=== PATIENT | male | born 1990 | race Caucasian/White ===

== ENCOUNTER 2018-08-22 13:00 | Emergency (ER) | payer MEDICARE, MEDICAID, SELFPAY ==
--- NOTE | 2018-08-22 13:09 | DI.CT_ITS ---
SYMPTOM/DIAGNOSIS: ALTERED MENAL STATUS, R/O ACUTE DISEASE CRANIAL CT (WITHOUT CONTRAST): Noncontrast. No priors. A noncontrast cranial CT was performed. The ventricular system is normal in appearance. There is no evidence of an intracranial mass lesion. There is no evidence of a subdural or epidural hematoma. No focal areas of decreased attenuation are seen. CONCLUSION: Normal noncontrast Cranial CT.
--- NOTE | 2018-08-22 13:17 | ERNE_ITS ---
Discharge Plan Disposition Patient Disposition: STILL A PATIENT Condition: Stable Discharge Details Chief Complaint: PsychEval Clinical Impression: Suicidal ideation Reason For Visit: KVNG Primary Care Provider: Tresa Tolliver ED Provider: Gordy Gan Home Meds and New Rx's Prescriptions: No Action naltrexone 50 MG tablet 50 mg PO DAILY RF: 0 lithium carbonate 450 MG tablet extended release 450 mg PO HS RF: 0 risperidone [Risperdal] 2 MG tablet 2 mg PO HS RF: 0 pantoprazole 40 MG tablet,delayed release (DR/EC) 40 mg PO DAILY RF: 0 benztropine 1 MG tablet 1 mg PO BID RF: 0 lorazepam [Ativan] 1 MG tablet 1 mg PO BID RF: 0 prednisone 20 MG tablet 40 mg PO DAILY Qty: 10 RF: 0 albuterol sulfate [ProAir HFA] 200 PUFF HFA aerosol inhaler 2 inh Inhalation DIRECTED Qty: 1 RF: 0 clindamycin HCl 300 MG capsule 300 mg PO QID Qty: 30 RF: 0 promethazine 25 MG tablet 25 mg PO QID PRN PRN (Reason: Nausea) Qty: 8 RF: 0 Medical Decision Making 28-year-old transgender male with an unknown psychiatric history who presented for EMS after found curled up in a ball unresponsive down near the gas station. Unable to obtain a blood pressure but remainder vitals stable per EMS. Patient was able to stand up off the stretcher and onto a chair in the emergency department. Per staff, patient was continually trying to lay on the floor of the ER. Per another staff member in the ED who is familiar with patient, he is transgender and is biologically female but identifies as male and has a previous psych history, has been at [facility] before, and has had a history of a Tylenol overdose. Patient does not provide any history. Upon frequent questioning, patient does not answer any questions. Patient appears rigid with flat affect and masklike facies. Dilated pupils bilaterally. Regular rate and rhythm. Lungs clear to auscultation. No evidence of trauma. Does not follow commands. Vitals normal in room. Will do an infectious, altered mental status, and toxicology workup including CT head, chest x-ray, labs, urinalysis, UDS, urine , EKG. 1345 --patient vomited in radiology and they were unable to obtain CT head. Patient now again in the position. Patient had refused to sit up and lay back for the cxr. Patient is now admitting to nurse that she did not take any medication in overdose. He is crying. He is refusing to move from position. I got Concrete Floor Installer and nurse to place patient in supine position and in restraints for his safety. Patient is now banging his head against the stretcher handle. Will give a dose of Ativan and Haldol. 1437: EKG notes a rate of 86, sinus, no acute ST elevation or depression. QTc 48. QRS 96. 1615 --patient is now calm and admitting that he is feeling suicidal. States he feels like taking a bottle of Tylenol PM. States he was discharged from a psych facility in [place] yesterday. Patient admits to history of previous suicide attempts with taking Tylenol overdose. Also admits to a history of cutting but denies any recent cutting. Denies homicidal ideation, hallucinations, alcohol or drug use states he is taking his medication regularly. Patient moved to room 5. 1530 --patient is medically cleared. [place] level low at less than 0.02. CT head and chest x-ray negative for acute findings. Mental health called. 1800 --mental health here to evaluate patient. Informed mental health that patient is admitting to feeling actively suicidal. 181 --patient denied feeling suicidal to mental health and requested to go home. Mental health has cleared patient for discharge to home. I went back and I discussed with patient and he stated he is feeling suicidal. Janice from [facility] states that she is well familiar with patient and that he says these things frequently. Janice from [facility] states that after discussing with her boss she cannot EE this patient and cannot voluntarily admit him due to his previous history of frequently saying he is going to swallow a bottle of Tylenol PM. States that as he actively did not act on this plan, he does not qualify for EE. I discussed that I do not feel comfortable sending patient home. [facility] health discussed with patient's mom who did feel comfortable picking up patient. Patient discussed with me that he wants to go home but that he cannot contract for safety and that he will swallow a bottle of Tylenol PM. I discussed this with mental health and do not feel comfortable patient going home and will complete EE paperwork. 2018 -- Case endorsed to Dr. Salamanca to f/u up with mental health regarding plan for placement. HPI General Mode of arrival: EMS . Date/Time Provider Initiated Documentation: 08/22/18 13:09 . Limitations to Documentation: altered mental status . Information obtained by: patient . HPI Narrative: Patient is a 28-year-old male with a unknown psychiatric history for altered mental status after found in position on ground near a gas station. EMS reports that patient was huddled in a position on the grass. They report that patient apparently had driven his car and got out of the car and onto the grass. No evidence of trauma or vomitus. Patient arrived to ED appearing in a catatonic-like state, looking down, and not answering questions. PMH: Anxiety, Depression, Borderline Personality Disorder, GERD, Gender identity disorder, Previous suicide attempts Surgical history: Appendectomy, Skin graft, Esophageal reconstruction Social history: Rare alcohol, Denies tobacco or drugs Meds: See list Allergies: See list Related Data Home Medications Medication Instructions Recorded Confirmed benztropine 1 mg PO BID 02/14/15 08/23/16 lithium carbonate 450 mg PO HS 02/14/15 08/23/16 lorazepam [Ativan] 1 mg PO BID 02/14/15 02/22/16 naltrexone 50 mg PO DAILY 02/14/15 08/23/16 pantoprazole 40 mg PO DAILY 02/14/15 08/23/16 risperidone [Risperdal] 2 mg PO HS 02/14/15 08/23/16 albuterol sulfate [ProAir HFA] 2 inh INHALATION DIRECTED #1 inh 02/23/16 prednisone 40 mg PO DAILY #10 tab 02/23/16 08/23/16 clindamycin HCl 300 mg PO QID #30 cap 07/18/16 08/23/16 promethazine 25 mg PO QID PRN PRN #8 tab 07/18/16 08/23/16 Previous Rx's Medication Instructions Recorded albuterol sulfate [ProAir HFA] 2 inh INHALATION DIRECTED #1 inh 02/23/16 prednisone 40 mg PO DAILY #10 tab 02/23/16 clindamycin HCl 300 mg PO QID #30 cap 07/18/16 promethazine 25 mg PO QID PRN PRN #8 tab 07/18/16 Allergies Allergy/AdvReac Type Severity Reaction Status Date / Time hydromorphone HCl Allergy Severe hallucinati Unverified 08/23/16 12:10 [From Dilaudid] ons aripiprazole [From Abilify] Allergy Intermediate skin Unverified 08/23/16 12:10 crawling-can't sit still fluoxetine Allergy Unknown Unverified 08/23/16 12:10 Penicillins Allergy Unknown Unverified 08/23/16 12:10 Review of Systems Review of Systems Unobtainable due to mental condition and Unobtainable due to mental status [facility] Social History Smoking/Tobacco Use Status: Never Exam Const General: well developed Orientation: alert, awake and confused HENMT Head: normal to inspection Ears: TM's normal bilaterally Face and sinus: normal facial exam Eyes General: appearance normal, both eyes and all related structures Eyelids: eyelids normal Pupils: PERRL and dilated bilaterally Neck Neck: normal visual inspection Lymphatic: no lymphadenopathy noted Chest Chest: normal inspection of the chest Resp Effort & Inspection: normal respiratory effort and able to speak in complete sentences Auscultation: clear to auscultation bilaterally Cardio Rate: regular rate Rhythm: regular rhythm GI Inspection: normal to inspection Palpation: soft, not firm, no guarding, no hepatosplenomegaly, no masses and nontender Auscultation: normal bowel sounds Skin General skin exam: no rashes or lesions noted Neuro General: alert Motor: muscle tone normal throughout Extrem General: normal to inspection, full ROM and normal capillary refill Psych Appearance: grossly normal Mental Status: mental status grossly normal Speech and Movement: speech and movement normal Affect: normal affect Thought Process: normal Dictated by: GORDY GAN DO Dictated: 08/22/18 Time: 1314 Date: Time: Transcribed Date: 08/22/18 Transcribed Time: 1314 By: KIM This is privileged, confidential information, intended only for the provider named. Any use or distribution by any person other than this provider is strictly prohibited. If you receive this report in error, please notify us immediately at [phone] and return the original report to us at the address above. Thank you.
[2018-08-22 13:30] VITALS: BP 106/61; PULSE 81; RESP 19; TEMP 37.2; O2SAT 98
[2018-08-22] MEDS: Normal Saline 1,000 ML 1000 ML IV (13:30)
--- NOTE | 2018-08-22 13:34 | NUR.NOTE ---
Nursing Note:Patient is choosing to be in the position, with the wires wrapped around him. This manual writer knows patient from previous interactions and it is concering to have all the wires
--- NOTE | 2018-08-22 13:45 | NUR.NOTE ---
Nursing Note:Patient accompanied to DI for head ct. Patient refuses to get out of the position with face buried into the bed and hands over face. Patient found vomiting self induced. Patient was not cooperative for the CT he continued to fight this health underwriter and the attendants in CT. he began to bash her head on the CT table and woudln't be redirected. Patient was brought back to the ER where he was reevaluated by the provider.
[2018-08-22 13:50] LABS: Abs Immature Grans 0.01 k/cumm (0.0-0.09); Absolute Basophil Count 0.03 k/cumm (0.0-0.2); Absolute Eosinophil Count 0.11 k/cumm (0.0-0.7); Absolute Lymphocyte Count 1.32 k/cumm (1.2-3.4); Absolute Monocyte Count 0.42 k/cumm (0.11-0.7); Absolute Neutrophil Count 3.88 k/cumm (1.2-6.7); Basophils % 0.5; Eosinophils % 1.9; HCT 42.1 % (40.0-50.0); Immature Grans % 0.2; Lymphocytes % 22.9; Mean Corp. HGB Concentration 33.3 g/dL (32.0-36.0); Mean Corpuscular Hemoglobin 31.2 pg (27.0-33.0); Mean Corpuscular Volume 93.8 fL (80-95); Mean Platelet Volume 10.5 fL (8.0-11.0); Monocytes % 7.3; Neutrophils % 67.2; Platelet Count 270 x1000/uL (130-400); RBC 4.49 m/cumm (4.50-6.00); RBC Distribution Width 13.7 % (11.8-14.1); White Blood Cell Count 5.77 k/cumm (4.4-10.8)
--- NOTE | 2018-08-22 13:50 | NUR.NOTE ---
Nursing Note: During the time between 1400 and 1300 patient boneptali Pawel was present in the room assisting this production underwriter along with the sheriff's detective. This production underwriter always made sure eyes were on the patient and that his needs were being met. Once patients restraints were removed just before 1300. Patient was much more cooperative and was able to go to CT and provide a urine. He was then moved to Room 5 the safety room.
[2018-08-22 13:52] LABS: Lactate-non-spesis 1.8 mmol/L (0.6-1.4)
--- NOTE | 2018-08-22 13:55 | NUR.NOTE ---
Nursing Note:Verbal order given for restraints at this time.Patient continues to try and harm self by hitting head off the side rails, biting ones self as well as not cooperating with staff. Patient did voice that He wanted to I want to kill my self so bad, i really wanted to hurt myself so bad.
[2018-08-22 14:04] LABS: Prothrombin Time 9.9 sec (9.3-10.8)
[2018-08-22 14:15] LABS: Salicylate < 2.8 mg/dL (2.8-20.0)
[2018-08-22 14:16] LABS: Lithium < 0.02 mmol/L (0.60-1.20)
[2018-08-22] MEDS: Haloperidol 5 MG/ML VIAL 4 MG IM/IV ×2 (14:16→14:32)
[2018-08-22] MEDS: LORazepam 2 MG/ML VIAL IVP ×2 (14:17→14:32)
[2018-08-22 14:19] LABS: Acetaminophen < 2 ug/mL (10-30)
[2018-08-22 14:21] LABS: ALT 27 U/L (12-78); AST 26 U/L (15-37); Albumin 3.9 g/dL (3.4-5.0); Alkaline Phosphatase 133 U/L (46-116); Anion Gap 8.8 mmol/L (3-11); BUN 9 mg/dL (7-18); Bilirubin, Total 0.2 mg/dL (0.2-1.0); CO2 28.2 mmol/L (21.0-32.0); CREATININE 0.67 mg/dL (0.70-1.30); Calcium 9.4 mg/dL (8.5-10.1); Chloride 103 mmol/L (98-107); Glucose 92 mg/dL (70-100); Lipase 105 U/L (73-393); Magnesium 2.2 mg/dL (1.8-2.4); Potassium 4.2 mmol/L (3.5-5.1); Sodium 140 mmol/L (136-145); Total Protein 8.3 g/dL (6.4-8.2)
[2018-08-22 14:28] LABS: Bilirubin, Direct < 0.05 mg/dL (0.00-0.20); ETHANOL BLOOD < 3.0 mg/dL (<3); Troponin I < 0.02 ng/mL (0.00-0.06)
--- NOTE | 2018-08-22 15:33 | NUR.NOTE ---
Pt. resting quietly. Nursing Note:
--- NOTE | 2018-08-22 16:02 | NUR.NOTE ---
at appoximately 14:00 i was asked to help in room number two, i entered the room and assisted the nurse and operational trainer putting the pt in restraints as the pt was trying to harm them self and resisting care. at 14;54 the nurse removed the leg and chest restraints as pt was much calmer. at 14:58 Nurse removed restaint off right hand . At 15:00 Nurse removed restraint off left hand. 15:15 pt was resting quietly, Nursing Note:
--- NOTE | 2018-08-22 16:07 | DI.RAD_ITS ---
SYMPTOM/DIAGNOSIS: ALTERED MENTAL STATUS, R/O ACUTE DISEASE CHEST X-RAY, PA AND LATERAL: Comparison 07/18/16. Heart size and pulmonary vasculature are within normal limits. There are stable areas of scarring in the right upper lobe. No infiltrates are seen in the right lung. There are air fluid levels seen in the inferior aspect of the left hemithorax. 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 These air fluid levels likely reflect air in bowel. Increased opacities are seen in the left lung with scarring in the left apex. These appear to be chronic. No definite acute infiltrates, effusions or pneumothoraces are identified. The bones appear intact. IMPRESSION: 1. Bilateral stable chronic appearing changes of the lungs. These may represent atelectasis or scarring. 2. Air fluid levels seen in the left hemithorax medially, most suggestive of a diaphragmatic hernia. CT scan of the chest and abdomen should be considered if further evaluation is warranted.
--- NOTE | 2018-08-22 16:23 | DI.VRAD_ITS ---
EXAM: CT Head Without Intravenous Contrast EXAM DATE/TIME: 08/22/2018 1:15 PM CLINICAL HISTORY: 28 years old, male; Signs and symptoms; Altered mental status/memory loss TECHNIQUE: Axial computed tomography images of the head/brain without intravenous contrast. Coronal and sagittal reformatted images were created and reviewed. COMPARISON: No relevant prior studies available. FINDINGS: Brain: Normal. No hemorrhage. No significant white matter disease. No edema. Ventricles: Normal. No ventriculomegaly. Bones/joints: Normal. No acute fracture. Sinuses: Normal as visualized. No acute sinusitis. Mastoid air cells: Normal as visualized. No mastoid effusion. Soft tissues: Normal. IMPRESSION: No acute intracranial abnormality. If symptoms persist short interval MRI can be obtained, if there are no contraindications for obtaining MRI. Dictated and Authenticated by: Kaveh Logan MD. Ordering:KIM KAMINSKI MD
--- NOTE | 2018-08-22 16:31 | DI.VRAD_ITS ---
EXAM: XR Chest, 2 Views EXAM DATE/TIME: 08/22/2018 4:09 PM CLINICAL HISTORY: 28 years old, male; Signs and symptoms; Other: Altered mental status, R/O acute disease TECHNIQUE: XR of the chest, 2 views. COMPARISON: CR PORTABLE CHEST ONE VIEW 07/18/2016 4:57 PM FINDINGS: Tubes, catheters and devices: There is air-filled loop of colon in the left apex which may represent a diaphragmatic hernia. Lungs: There is atelectasis at the left lung base and the right upper lobe. Pleural space: Unremarkable. No pleural effusion. No pneumothorax. Heart/Mediastinum: Unremarkable. No cardiomegaly. Bones/joints: Unremarkable for patient's age. IMPRESSION: Atelectasis at the left lung base and right upper lobe. Possible diaphragmatic hernia with loop of colon. Dictated and Authenticated by: Kaveh Logan MD. Ordering:KIM KAMINSKI MD
--- NOTE | 2018-08-22 17:05 | PDOC.ERCMPRO ---
- If Service Date Differs Date of service: 08/22/18 Time of Service: 17:05 Care Management Progress Note Wong presents to the ER via EMS after community members found him lying on the ground near the gas station by the hospital. Wong resides with his parents Elvira and Yamil in [place], and recently was in a psychiatric facility in [facility]. Per Wong's report he was discharged from the facility in [facility] yesterday 08/22/18, he states that he took a train to [place] where his parents picked him up. Wong states that he was in the [facility] Psychiatric facility as he was banging my head against the floor. Wong is transgender, and states that he would like to go to [place] to live as they have a Pride center. Wong is very forthcoming during conversation, he maintains eye contact, his affect is flat during discussion, though he is able to articulate well throughout discussion. 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 Wong requested that this CM contact his parents to alert them of where he is. 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 Wong is adopted, and Elvira states that his mom has some of the same mental health diagnoses. Elvira also states that Wong has a long history if suicide attempts and his plan generally is to overdose. Wong has attempted overdose with Tylenol in the past. CM discussed safety plan with Wong which he is in agreement with, Wong was very cooperative and pleasant throughout discussion. Huddle Participants: JOSE Oliveira RN, TERESITA Goddard Assistant Boys Track Coach, CORNELIO Vega,. Time and Date: 08/22/18 @ 1630 Safety plan has been established with patient, and care team, to adhere to patient goals, identify restrictions based on behavioral status, address nutrition, and determine allowed personal belongings, tools for hygiene and personal care. Determine level of activity including ambulation, level of supervision, visitors, and determine privileges based on behaviors and level of engagement by pt. SAFETY PLAN: 1. Will remain on suicide precautions and in paper clothes. 2. Will remain in room under direct supervision of one-on-one staff at all times provided by RADHA, BRAIDER SETTER air cargo specialist supervisor. 3. May have paper cups, plates, finger foods. 4. Follow [facility] Management of the Admitted Behavioral Health Patient policy. 5. Comfort bath system only. 6. No personal belongings 7. May have visitors at patient discretion - Mom and Dad Elvira and Yamil to visit 8. Bathroom Privileges - direct care staffer to escort Wong to and from the bathroom. [facility] will be coordinating placement at inpatient facility, last updates included the following: [facility] to meet with Wong once medically cleared. Patient is currently voluntarily at [facility] and seeking inpatient admission when a bed becomes available. [facility] Frontline Multifold Operator will continue seeking placement. Please contact the Production Counter Metal Finisher ([phone]) and [facility] Multifold Operator ([phone]) for any needed changes in the Safety Plan. Safety plan has been provided to interdepartmental care team including Clinical Coordinator , Nursing Assistant Boys Track Coach.
--- NOTE | 2018-08-22 17:14 | CMPROGNOTE_ITS ---
- If Service Date Differs Date of service: 08/22/18 Time of Service: 17:05 Care Management Progress Note Wong presents to the ER via EMS after community members found him lying on the ground near the gas station by the hospital. Wong resides with his parents Elvira and Yamil in [place], and recently was in a psychiatric facility in [facility]. Per Wong's report he was discharged from the facility in [facility] yesterday 08/22, he states that he took a train to [place] where his parents picked him up. Wong states that he was in the [facility] Psychiatric facility as he was banging my head against the floor. Wong is transgender, and states that he would like to go to [place] to live as they have a Pride center. Wong is very forthcoming during conversation, he maintains eye contact, his affect is flat during discussion, though he is able to articulate well throughout discussion. 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 Wong requested that this CM contact his parents to alert them of where he is. 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 Wong is adopted, and Elvira states that his mom has some of the same mental health diagnoses. Elvira also states that Wong has a long history if suicide attempts and his plan generally is to overdose. Wong has attempted overdose with Tylenol in the past. CM discussed safety plan with Wong which he is in agreement with, Wong was very cooperative and pleasant throughout discussion. Huddle Participants: JOSE Oliveira RN, TERESITA Goddard Tableau Report Developer, CORNELIO Vega,. Time and Date: 08/22/18 @ 1630 Safety plan has been established with patient, and care team, to adhere to patient goals, identify restrictions based on behavioral status, address nutrition, and determine allowed personal belongings, tools for hygiene and personal care. Determine level of activity including ambulation, level of supervision, visitors, and determine privileges based on behaviors and level of engagement by pt. SAFETY PLAN: 1. Will remain on suicide precautions and in paper clothes. 2. Will remain in room under direct supervision of one-on-one staff at all times provided by RADHA, MOBILE PRODUCT MANAGER supply coordinator. 3. May have paper cups, plates, finger foods. 4. Follow [facility] Management of the Admitted Behavioral Health Patient policy. 5. Comfort bath system only. 6. No personal belongings 7. May have visitors at patient discretion - Mom and Dad Elvira and Yamil to visit 8. Bathroom Privileges - clinical staff educator to escort Wong to and from the bathroom. [facility] will be coordinating placement at inpatient facility, last updates included the following: [facility] to meet with Wong once medically cleared. Patient is currently voluntarily at [facility] and seeking inpatient admission when a bed becomes available. [facility] Frontline Software Release Manager will continue seeking placement. Please contact the Meter Shop Superintendent Training And Development Rep ([phone]) and [facility] Software Release Manager ([phone]) for any needed changes in the Safety Plan. Safety plan has been provided to interdepartmental care team including Clinical Coordinator , Nursing Tableau Report Developer.
[2018-08-22 17:20] LABS: Bilirubin Negative (Negative); Blood Negative (Negative); Clarity Clear; Glucose Negative (Negative); Ketones Negative (Negative); Leukocyte Esterase Negative (Negative); Nitrite Negative (Negative); Urobilinogen 0.2 EU/dL (Up TO 0.2)
[2018-08-22 17:33] LABS: *AMPHETAMINES SCREEN URINE Negative (Negative); *BARBITURATES SCREEN URINE Negative (Negative); *BENZODIAZEPINES SCREEN URINE Negative (Negative); Cannabinoids THC Negative (Negative); Cocaine Screen,Urine Negative (Negative); METHADONE URINE SCREEN Negative (Negative); OPIATES URINE SCREEN Negative (Negative)
[2018-08-22 17:34] LABS: Tricyclic Antidepressants Negative (Negative)
--- NOTE | 2018-08-22 17:39 | NUR.NOTE ---
Nursing Note: Provider ordered restraints to be placed to perform adequate care for the patient and to keep him safe. Patient was pounding his head off the bed rails as well as biting himself. Patient not communicating with this medical underwriter at this time only stated that i just really want to hurt myself. This medical underwriter was assisted by the and patient was placed into 4 point restraints at 1400. At 1454 patient had calmed down and was appropriate and willing to talk with this medical underwriter. His legs were removed at this time along with the chest strap. Patient also informed this medical underwriter that He was released from a [facility]. He was picked up from the bus stop yesterday by his parents at the bus stop. this morning he felt like overdosing and so he got in his car and began to drive. He [place] himself [place] laying on the ground when someone called EMS and brought him here. He Said he was going to go to [place]. At 1458 Patients hands were released.
--- NOTE | 2018-08-22 21:48 | PDOC.MHCN ---
Mental Health Crisis Note Presenting Issue How did you arrive at the ED and why did you come: Patient comes to the ED by ambulance after he is found curled up in a ball and unresponsive near a gas station. Precipitating Factors When I first meet with patient earlier in the evening, he denies suicidal ideation, asks to be allowed to go home and agrees to remain safe through the night. When Dr. Gan speaks with him, he provides conflicting information and reports to her that he is not safe to leave the hospital and that he has a plan of buying Tylenol and taking the whole bottle. Several hours later, after a shift change at [facility], Dr. Salamanca and I meet with patient again. At this time, patient again asks to go home. He is able to enter into a safety plan and tells Dr. Salamanca he will go home and go to bed and will not attempt to harm himself tonight. Patient and his mom have an appointment in the morning at the [facility] to transfer his care from [facility] to the [facility] as patient wishes to move into one of the [facility]'s group homes. Patient shares that he is looking forward to that appointment as he feels ready to move out of his parents' house. Disposition BEHAVIOR: Cooperative. EYE CONTACT: Good. MOOD: Calm. AFFECT: Congruent to mood. APPETITE: Good. SLEEP(trouble falling/staying asleep: Patient reports ongoing trouble falling and staying asleep. Plan After consultation with Dr. Salamanca, the decision is made to discharge patient home. A safety plan is created with patient's parents. His mom advises that all medications at home are under lock and ambriz and patient does not have access to the medications. The only store that is within walking distance of their home is now closed for the night, so patient is unable to walk to a store to purchase Tylenol this evening. 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 INSTALLATION ENGINEER will follow-up with patient in the morning. Parents and patient know how to contact [facility] emergency services and they will call as needed. Signature Clinician's Name/Title: Janice Phillips BA, [facility]
--- NOTE | 2018-08-22 22:13 | PDOC.MHCN_ITS ---
Mental Health Crisis Note Presenting Issue How did you arrive at the ED and why did you come: Patient comes to the ED by ambulance after he is found curled up in a ball and unresponsive near a gas station. Precipitating Factors When I first meet with patient earlier in the evening, he denies suicidal ideation, asks to be allowed to go home and agrees to remain safe through the night. When Dr. Gan speaks with him, he provides conflicting information and reports to her that he is not safe to leave the hospital and that he has a plan of buying Tylenol and taking the whole bottle. Several hours later, after a shift change at [facility], Dr. Salamanca and I meet with patient again. At this time , patient again asks to go home. He is able to enter into a safety plan and tells Dr. Salamanca he will go home and go to bed and will not attempt to harm himself tonight. Patient and his mom have an appointment in the morning at the [facility] to transfer his care from [facility] to the [facility] as patient wishes to move into one of the [facility]'s group homes. Patient shares that he is looking forward to that appointment as he feels ready to move out of his parents' house. Disposition BEHAVIOR: Cooperative. EYE CONTACT: Good. MOOD: Calm. AFFECT: Congruent to mood. APPETITE: Good. SLEEP(trouble falling/staying asleep: Patient reports ongoing trouble falling and staying asleep. Plan After consultation with Dr. Salamanca, the decision is made to discharge patient home. A safety plan is created with patient's parents. His mom advises that all medications at home are under lock and ambriz and patient does not have access to the medications. The only store that is within walking distance of their home is now closed for the night, so patient is unable to walk to a store to purchase Tylenol this evening. 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 ANIMAL SKINNER will follow-up with patient in the morning. Parents and patient know how to contact [facility] emergency services and they will call as needed. Signature Clinician's Name/Title: Janice Phillips BA, [facility]
[2018-08-22 22:50] VITALS: BP 110/64; PULSE 74; RESP 16; TEMP 36.7; O2SAT 98
--- NOTE | 2018-08-23 00:33 | W.ED.FU ---
Follow Up Plan: The case was signed out to me by my colleague Dr. Gan. Upon initial transition of care there was concerned that the patient had expressed suicidal ideations, stating that he would take Tylenol when he got home to potentially harm himself. Initially the plan was to fill out and EEG for the patient, have him admitted. And then went and reassessed the patient, I discussed with him the current plan, and reevaluated his initial statements. At this time the patient states that he is not going to take any Tylenol, and I do not want to hurt myself or harm myself tonjonny. When asked about the previous statements that he made he states that he no longer feels that way. I did review the case with the mental health advisors, as well as the director auto Susan Williamson. I was presented with the care plan that has been enacted by the patient's psychiatrist Dr. Ronny Mendez as well as his [employer] heel caser Connie Méndez and the senior quantity surveyor of adult mental health Car Diane in the adult outpatient clinician Ag Read this form can be found in the formal documentation of the [facility] File for client #[id number] date of 88. The plan is very specific, stating specifically that Michael has common presentations that include emotional dysregulation, self-harm, selective mutism, regression into position, unlawful behavior, and smearing of feces. This guideline has been developed to assist staff, community partners, and Michael in managing these behaviors: Medication overdose: [facility] screener will assess Ericks level of risk. If risk is consistent with history, screener will consult with supervisor clam bed and likely follow recommendations for parasuicidality to discharge home. At this time Michael is not complaining of any suicidal ideation, and he risks and is what was previously stated. The case is discussed with the current heel caser and the supervisor clam bed Aixa Williamson. A safety plan was contracted with the patient's family for locking up all medications, and bringing Michael home under the mother's direction. All parties agree with the plan, as well as the current proceedings. All questions have been answered. At this time the patient will be discharged home in the care of his mother. I have extensively reviewed the treatment plan and discharge instructions with the patient and their family. I have addressed all patient concerns at this time. The patient and family was made aware of what symptoms to monitor for that would warrant a return to the emergency department. Discussed the plan with the patient and family, they demonstrate verbal understanding and agreement with our assessment and plan at this time.
--- NOTE | 2018-08-23 00:39 | ED.FU.B_ITS ---
Follow Up Plan: The case was signed out to me by my colleague Dr. Gan. Upon initial transition of care there was concerned that the patient had expressed suicidal ideations, stating that he would take Tylenol when he got home to potentially harm himself. Initially the plan was to fill out and EEG for the patient, have him admitted. And then went and reassessed the patient, I discussed with him the current plan, and reevaluated his initial statements. At this time the patient states that he is not going to take any Tylenol, and I do not want to hurt myself or harm myself tonjonny. When asked about the previous statements that he made he states that he no longer feels that way. I did review the case with the mental health advisors, as well as the records management director Susan Williamson. I was presented with the care plan that has been enacted by the patient's psychiatrist Dr. Ronny Mendez as well as his [employer] employment case manager Connie Méndez and the senior database engineer of adult mental health Car Diane in the adult outpatient clinician Ag Read this form can be found in the formal documentation of the [facility] File for client #[id number] date of [birth year]. The plan is very specific, stating specifically that Michael has common presentations that include emotional dysregulation, self-harm, selective mutism, regression into position, unlawful behavior, and smearing of feces. This guideline has been developed to assist staff, community partners, and Michael in managing these behaviors: Medication overdose: [facility] screener will assess Ericks level of risk. If risk is consistent with history, screener will consult with supervisor wood room and likely follow recommendations for parasuicidality to discharge home. At this time Michael is not complaining of any suicidal ideation, and he risks and is what was previously stated. The case is discussed with the current employment case manager and the supervisor wood room Aixa Williamson. A safety plan was contracted with the patient's family for locking up all medications, and bringing Michael home under the mother's direction. All parties agree with the plan, as well as the current proceedings. All questions have been answered. At this time the patient will be discharged home in the care of his mother. I have extensively reviewed the treatment plan and discharge instructions with the patient and their family. I have addressed all patient concerns at this time. The patient and family was made aware of what symptoms to monitor for that would warrant a return to the emergency department. Discussed the plan with the patient and family, they demonstrate verbal understanding and agreement with our assessment and plan at this time.
== END 2018-08-22 22:52 | disposition home or self-care (01) ==
PROVIDERS: Emergency Provider Physician Assistant; PCP Family Medicine
DX: R45.851 Suicidal ideations; Z78.1 Physical restraint status; F64.9 Gender identity disorder, unspecified; Z91.5 Personal history of self-harm; F41.8 Other specified anxiety disorders
CPT/HCPCS: 36415; 80053; 80076; 80307; 83690; 93005; 96361; 96374; 96375; 99285; 70450; 71046; 80178; 80320; 80329; 81003; 83605; 83735; 84484; 85025; 85610; 85730; 93010; J1630; J2060